=== PATIENT | male | born 1975 | race Caucasian/White ===

== ENCOUNTER 2017-06-09 06:06 | Day surgery (SDC) | payer OTHER ==
[2017-06-09] VITALS (13 sets, daily range): BP systolic 117–148; BP diastolic 67–94; PULSE 74–86; RESP 18–24
[~2017-06-09] VITALS: Ht 171.4 cm; Wt 117.0 kg
[~2017-06-09 06:06] MED LIST: CEFAZOLIN 1 GM/50 ML (PMX) 50 ML IVPB ONE; SOD CHLORIDE 0.9% 1,000 ML IV ONE
[2017-06-09] MEDS ORDERED: BUPIVACAINE 0.25% (MPF) 30 ML INJ ONE (06:57)
[2017-06-09] MEDS ORDERED: POLYMYXIN/BACITRACIN 1L IRRIG ONE (06:57)
[2017-06-09] MEDS ORDERED: LIDOCAINE 2% (SDV) 5 ML INJ ONE (07:25)
[2017-06-09] MEDS ORDERED: FENTAnyl 50 MCG/ML VIAL ONE (07:25)
[2017-06-09] MEDS ORDERED: CEFAZOLIN 1 GM INJ ONE (07:46)
[2017-06-09] MEDS ORDERED: PROPOFOL 40 ML ONE (07:46)
[2017-06-09] MEDS ORDERED: ROPIVACAINE 0.5 % 30 ML VIAL ONE (07:46)
[2017-06-09] MEDS ORDERED: ROCURONIUM 50 MG INJ ONE (07:46)
[2017-06-09] MEDS ORDERED: SUGAMMADEX SODIUM 200 MG/2 ML VIAL IV ONE (07:46)
[2017-06-09] MEDS ORDERED: SUCCINYLCHOLINE CHLORIDE 100 MG/5 ML SYG IV ONE (07:46)
[2017-06-09] MEDS ORDERED: HYDROmorphONE (0.2 MG/ML) 10ML SYG IV PRN ×3 (08:00)
[2017-06-09] MEDS ORDERED: DIPHENHYDRAMINE 50 MG INJ IV PRN (08:00)
[2017-06-09] MEDS ORDERED: MEPERIDINE 25 MG INJ IV PRN (08:00)
[2017-06-09] MEDS ORDERED: ONDANSETRON 4 MG INJ IV PRN (08:00)
[2017-06-09] MEDS ORDERED: FENTAnyl 50 MCG/ML VIAL IV PRN ×2 (08:00)
[2017-06-09] MEDS ORDERED: METOCLOPRAMIDE 10 MG INJ IV PRN (08:00)
--- NOTE | 2017-06-09 08:57 | OPR ---
Date/Time of Note Date/Time of Note DATE: 06/09/17 TIME: 08:53 Operative Report Procedure Date: Jun 09, 2017 Preoperative Diagnosis Incarcerated ventral hernia Postoperative Diagnosis Same Operation/Procedure Performed 1. Laparoscopic incarcerated ventral hernia repair 2. intra-abdominal mesh implantation with. 10 x [address] mesh 3. therapeutic injection of subcutaneous local anesthesia Surgeon see signature line Asbestos Surveyor none Anesthesia Type: general Estimated Blood Loss: 10 - 50 ml's Transfusion none Specimen none Grafts/Implants none Complications none Pt Condition Post Procedure: stable Indications This is a 42-year-old male with a large incarcerated ventral hernia. He requests surgical repair. Risks alternatives benefits and percent were discussed the patient. Patient expresses understanding consents to the operation. Procedure Description Patient is taken to the OR and prepped and draped in usual sterile fashion. Surgical timeout is performed. IV antibiotics were given. Left upper quadrant 5 mm transverse incision is made with a 15 blade. Using a 5 mm optical trocar optical entry is performed. Pneumoperitoneum is established. Left flank 12 mm optical trocar was placed under direct visualization. Left lower quadrant 5 mm optical trocar was placed under direct visualization. Upon initial inspection there is a very large incarcerated hernia. This was reduced laparoscopically using laparoscopic harmonic charito. The hernia defect was identified. The defect was closed primarily with #1 Prolene in interrupted fashion using Endo Close and laparoscopic techniques. 0 Prolene transfacial sutures were placed on the [address] mesh to secure its position and prevent mesh migration this was also pulled through the fascia with Endo Close intent tied down in multiple places. The mesh was then secured to cover the whole hernia defect with secure strap with approximate 4-5 cm of coverage in all direction. There is good hemostasis. Ports removed under direct visualization. Skin was closed using skin astrid. Therapeutic subcutaneous Marcaine was injected throughout the port sites. Dry dressings were applied. Flora HOYT Jun 09, 2017 08:57
[2017-06-09] MEDS ORDERED: HYDROCODONE/APAP (5/325) TAB PO ONE (09:00)
== END 2017-06-09 11:03 | disposition home or self-care (01) ==
LOC: SDS 06:06
PROVIDERS: ATTEND Surgery
DX: K43.9 Ventral hernia without obstruction or gangrene (principal); E66.01 Morbid (severe) obesity due to excess calories
CPT/HCPCS: 49653; C1781; J0690; J1170; J2795; J3010; Z7512; Z7610